=== PATIENT | female | born 1965 | race Two or more races ===

== ENCOUNTER → 2017-11-13 | Outpatient (CLI) | payer OTHER | LOC: CIMAGING 09:45 | PROVIDERS: ATTEND Family Medicine | DX: Z12.31 Encounter for screening mammogram for malignant neoplasm of breast (principal) ==

== ENCOUNTER → 2017-12-25 | Outpatient (CLI) | payer OTHER | LOC: CIMAGING 13:01 | PROVIDERS: ATTEND Family Medicine | DX: N63.24 Unspecified lump in the left breast, lower inner quadrant (principal) | CPT/HCPCS: 76641-PO ==

== ENCOUNTER → 2018-02-09 | Day surgery (SDC) | payer OTHER ==
[~2018-02-09] MED LIST: BUPIVACAINE 0.5% 30 ML SDV ONE; LIDOCAINE 1% 300 MG/30 ML SDV ONE; THROMBIN (BOVINE) 5,000 UNIT VIAL TP ONE
== END | disposition home or self-care (01) ==
LOC: FIMAGING 07:17
PROVIDERS: ATTEND Radiology Diagnostic Radiology
PROC: 0HBU3ZX Excision of Left Breast, Percutaneous Approach, Diagnostic (ICD-10-PCS; principal; 2018-02-09)
DX: N62 Hypertrophy of breast (principal)